=== PATIENT | male | born 2000 | race Hispanic/Latino ===

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

== ENCOUNTER → 2023-06-27 | Emergency (ER) | payer BC ==
[~2023-06-27] MED LIST: CIPROFLOXACIN750 MG PO; CLOTRIMAZOLE-BE15 GM TOP; MINOCYCLINE HCL50 MG PO; PERMETHRIN60 GM TOP; PERMETHRIN60 GM TP
== END | disposition left against medical advice (07) ==
LOC: ER 12:14
DX: M25.569 Pain in unspecified knee (principal)